=== PATIENT | female | born 1985 | race Caucasian/White ===

== ENCOUNTER 2020-05-31 10:03 | Emergency (ER) | payer OTHER, SELFPAY ==
--- NOTE | ~2020-05-31 | XR_ITS ---
EXAMINATION: CHEST AND LEFT SHOULDER. CLINICAL INFORMATION: Chest pain and left thumb pain. COMPARISON: None TECHNIQUE: Chest 2 views. Left shoulder 4 views. FINDINGS: Chest: The lungs are well-expanded and clear of acute process. The heart size and pulmonary vascularity is normal. No gross bony abnormality seen. Left shoulder: There is no visible acute fracture, dislocation or subluxation seen. Is minimal inferior AC joint spurring. The soft tissues are normal. XR/XR shoulder LT min 2V IMPRESSION: Minimal inferior left AC joint spurring. No visible acute fracture or dislocation. Unremarkable chest exam.
--- NOTE | ~2020-05-31 | XR_ITS ---
EXAMINATION: CHEST AND LEFT SHOULDER. CLINICAL INFORMATION: Chest pain and left thumb pain. COMPARISON: None TECHNIQUE: Chest 2 views. Left shoulder 4 views. FINDINGS: Chest: The lungs are well-expanded and clear of acute process. The heart size and pulmonary vascularity is normal. No gross bony abnormality seen. Left shoulder: There is no visible acute fracture, dislocation or subluxation seen. Is minimal inferior AC joint spurring. The soft tissues are normal. XR/XR chest 2V IMPRESSION: Minimal inferior left AC joint spurring. No visible acute fracture or dislocation. Unremarkable chest exam.
[2020-05-31 10:51] VITALS: BP 134/76; PULSE 110; RESP 18; TEMP 36.6; O2SAT 99; BMI 29.9
--- NOTE | 2020-05-31 12:52 | ECG_ITS ---
Test Reason : LEFT ARM PAIN Blood Pressure : / mmHG Vent. Rate : 078 BPM Atrial Rate : 078 BPM P-R Int : 128 ms QRS Dur : 102 ms QT Int : 382 ms P-R-T Axes : 042 054 036 degrees QTc Int : 435 ms Normal sinus rhythm with sinus arrhythmia Incomplete right bundle branch block Borderline ECG No previous ECGs available Referred By: Reyna Toledo Electronically Signed By:MAKENNA CLEMENTE MD
[2020-05-31 14:00] LABS: Basophils Percent Auto 0.3 % (0-2); Eosinophils Absolute Auto 0.1 X10*3/uL (0.0-0.4); Eosinophils Percent Auto 0.8 % (0-4); Hematocrit 41.9 % (37-47); Hemoglobin 13.8 g/dl (12.0-16.0); Imm Gran Abs Auto 0.04 X10*3/uL (0.00-0.03); Imm Gran Pct Auto 0.3 % (0.0-0.4); Lymphocytes Percent Auto 24.9 % (20-40); MANUAL DIFF FLAG NO; Mean Corpuscular HGB Conc 32.9 g/dl (31.0-35.0); Mean Corpuscular Hemoglobin 28.4 pg (27.0-33.0); Mean Corpuscular Volume 86.2 fL (80-98); Monocytes Absolute Auto 0.6 X10*3/uL (0.1-1.2); Neutrophils Absolute Auto 8.2 X10*3/uL (2.0-8.3); Neutrophils Percent Auto 68.7 % (45-73); Platelet Count 417 X10*3/uL (160-400); Red Blood Count 4.86 X10*6/uL (4.20-5.50); Red Cell Distribution Width 13.2 % (11.0-16.0); White Blood Count 11.9 X10*3/uL (4.8-10.8)
--- NOTE | 2020-05-31 14:01 | ED.EXTPRO ---
HPI - Extremity Problem General Chief complaint: Extremity Problem Stated complaint: lt arm pain Time Seen by Provider: 05/31/20 11:44 Source: patient Mode of arrival: ambulatory Limitations: no limitations History of Present Illness HPI Narrative: 35-year-old female with no significant past medical history presenting to the ED with complaints of atraumatic left shoulder pain intermittently for the past week with some slight neck stiffness worse since this morning. Denies any fevers, chills, dizziness, headaches, nausea/vomiting, chest pain, shortness of breath, dyspnea on exertion, orthopnea, palpitations, paresthesias, extremity edema in the upper or lower, any symptoms or any other symptoms complaints or concerns at this time. Reports that she is concerned about a heart attack due to her grandmother had a heart attack and in her 40s/50s. She also reports the huge cardiac history in her family on both her mother and her father side. Denies recent travel/immobilization/recent surgery or procedures/history of DVT/peripheral vascular disease/recent illness or history of gout. Denies any cocaine or any other drug usage. MD Complaint: extremity pain Onset (ago): week(s) (One week worse since this morning) Pain Consistency: constant Location: left and upper extremity Quality: aching and other (Intermittent over the past week although constant since this morning) Radiation: distal Relieving factors: nothing Exacerbating factors: nothing Associated symptoms: denies other symptoms Related Data Previous Rx's Medication Instructions Recorded cyclobenzaprine 10 mg PO Q8H #10 tab 05/31/20 ibuprofen 800 mg PO Q8H PRN #14 tab 05/31/20 lidocaine [Lidoderm] 1 patch TOPICAL DAILY #15 ea 05/31/20 Allergies Allergy/AdvReac Type Severity Reaction Status Date / Time amoxicillin [AMOXICILLIN] Allergy Intermediate HIVES Verified 05/31/20 10:50 Penicillins [PENICILLINS] Allergy Intermediate HIVES Verified 05/31/20 10:50 shellfish derived Allergy Intermediate ITCHING Verified 05/31/20 10:50 [SHELLFISH DERIVED] sulfamethoxazole Allergy Intermediate HIVES Verified 05/31/20 10:50 [From BACTRIM] trimethoprim [From BACTRIM] Allergy Intermediate HIVES Verified 05/31/20 10:50 penicillin V Allergy Unknown hives Verified 01/06/19 00:00 Sulfa (Sulfonamide Allergy Unknown hives Verified 01/06/19 00:00 Antibiotics) shellfish Allergy Unknown itching Uncoded 01/06/19 00:00 mouth Review of Systems Review of Systems: Constitutional : No Weight loss, No Fever, No Chills, No Night Sweats, No Fatigue, No Malaise ENT/Mouth : No Hearing loss, No Ear Pain, No Nasal Congestion, No Sinus Pain, No Hoarseness, No sore throat, No Rhinorrhea, No Swallowing Difficulty Eyes: No Eye Pain, No Swelling, No Redness, No Foreign Body, No Discharge, No Vision Changes Cardiovascular : No Chest Pain, No SOB, No Dyspnea on Exertion, No Orthopnea, No Edema, No Palpitations Respiratory : No Cough, No Sputum, No Wheezing, No Smoke Exposure, No Dyspnea Gastrointestinal : No Nausea, No Vomiting, No Diarrhea, No Constipation, No abdominal Pain, No Hematochezia, No Melena Genitourinary : no irregular bleeding, No Dysuria, No Urinary Frequency, No Hematuria, No Urinary Incontinence, No Urgency, No Flank Pain, No Urinary Flow Changes, No Hesitancy Musculoskeletal : + joint pain, No Myalgias, No Joint Swelling Skin : No Skin Lesions, No rash Neuro : No Weakness, No Numbness, No Paresthesias, No Loss of Consciousness, No Dizziness, No Headache Psych : No Anxiety/Panic, No Depression, No SI/HI/AH/VH, No Social Issues, Heme/Lymph: No Bruising, No Bleeding,No Lymphadenopathy Endocrine : No Polyuria, No Polydipsia, No Temperature Intolerance Yes all other systems are reviewed and are negative FOR[facility]LY [facility] Past Medical History Attestation statement: The following information was validated with the patient. Medical History No known health problems Social History Social History Advance Directives: No Advance Directives Information Provided: No Physical Exam Vital Signs: Vital Signs: Last Vital Signs Temp 97.9 F 05/31/20 10:51 Pulse 110 H 05/31/20 10:51 Resp 18 05/31/20 10:51 BP 134/76 05/31/20 10:51 Pulse Ox 99 05/31/20 10:51 Body Mass Index 29.9 vital signs have been reviewed as normal and appeared to be correct. Blood pressure normal. Heart rate tachycardic at 110. Respiration rate normal. Temperature normal. Oxygen saturation normal. Appearance: Alert. Oriented X3. No acute distress. Head: Normal external exam. Normocephalic. Atraumatic. Eyes: PERRLA. EOMI. Conjunctiva and sclera normal. Eyelids normal. ENT: Pharynx normal. Uvula midline. Moist mucous membranes. No trismus noted. No drooling noted. No muffled voice noted. Neck: Normal inspection. Neck supple. FROM. No adenopathy. Thyroid Normal. Trachea midline. No meningeal signs. No neck mass noted. Tender to palpation of bilateral paracervical musculature. No mid cervical tenderness. No step-offs or deformities noted. Patient neuro intact bilaterally and distally on all 4 extremities. Reflexes intact bilaterally and distally in all 4 extremities. No rashes/lesion/induration/fluctuance or signs of infection noted. No edema noted. CVS: Normal heart rate and rhythm. Heart sound normal. No murmurs noted. Pulses normal throughout. Respiratory: No respiratory distress. Painless inspiration. Breath sounds normal. No wheezes/rales/rhonchi noted. Chest nontender. No accessory muscle usage noted or decreased air movement noted. Back: Full range of motion noted. No obvious deformities, or edema. Full ROM in back and lower extremities. Skin: Skin warm and dry. Normal skin color. Normal skin turgor. No rashes/lesions/lacerations noted. Extremities: No reproducible tenderness to left shoulder/left upper arm or lower arm or hand. Patient has full range of motion of the left shoulder/left elbow and left wrist and hand. No signs of infection. Otherwise all other Extremities exhibit normal range of motion and nontender. Neuro: Oriented X 3. No motor deficit. No sensory deficit. Reflexes normal. Normal steady gait. Course Course Course Narrative: 35-year-old female with no significant past medical history presenting to the ED with complaints of atraumatic left shoulder pain intermittently for the past week with some slight neck stiffness worse since this morning. Patient requesting cardiac workup due to grandmother had a RI and sudden at 40-50 years old per patient. She also reports the huge cardiac history in her family on both her mother and her father side. - on exam patient is alert and oriented x3. Not in any acute distress. Mildly tachycardic at 110 otherwise all other vitals are within normal limits. Lungs clear to auscultation. CV RRR. No reproducible tenderness to left shoulder. Patient with full range of motion no signs of infection. Patient neuro intact no focal neuro deficits. - will obtain labs, chest x-ray, x-ray of left shoulder, EKG then re-evaluate. Reevaluation(s) Reevaluation #1: - Glucose level at 120 white blood cell count [id number] otherwise all other labs are within normal limits including troponin. - EKG sinus rhythm with incomplete right bundle-branch block otherwise no acute ischemic changes noted. There were no prior EKGs to compare to at this time. - chest x-ray within normal limits no acute processes noted. - x-ray of left shoulder revealed minimal inferior left AC joint spurring otherwise no other acute processes therefore most likely patient is having pain from this bone spur. - will DC home with symptomatic treatment along with instructions to return if any new or worsening symptoms to follow up with primary care provider. Patient understands agrees the plan. Time: 14:57 MDM - Extremity (Nontraumatic) Medical Records Attestation: I reviewed the patient's medical records. Lab Data Attestation: I reviewed the patient's lab results. Result diagrams: 05/31/20 13:47 05/31/20 13:47 Labs: Lab Results 05/31/20 05/31/20 05/31/20 Range/Units 13:47 13:47 13:47 WBC 11.9 H (4.8-10.8) X10*3/uL RBC 4.86 (4.20-5.50) X10*6/uL Hgb 13.8 (12.0-16.0) g/dl Hct 41.9 (37-47) % MCV 86.2 (80-98) fL MCH 28.4 (27.0-33.0) pg MCHC 32.9 (31.0-35.0) g/dl RDW 13.2 (11.0-16.0) % Plt Count 417 H (160-400) X10*3/uL MPV 9.0 L (9.4-12.3) fL Immature Gran % (Auto) 0.3 (0.0-0.4) % Neut % (Auto) 68.7 (45-73) % Lymph % (Auto) 24.9 (20-40) % [place] % (Auto) 5.0 (2-11) % Eos % (Auto) 0.8 (0-4) % Baso % (Auto) 0.3 (0-2) % Lymph # (Auto) 3.0 (1.2-4.9) X10*3/uL [place] # (Auto) 0.6 (0.1-1.2) X10*3/uL Eos # (Auto) 0.1 (0.0-0.4) X10*3/uL Baso # (Auto) 0.0 (0.0-0.2) X10*3/uL Abs Immat Gran (auto) 0.04 H (0.00-0.03) X10*3/uL Absolute Neuts (auto) 8.2 (2.0-8.3) X10*3/uL Absolute Nucleated RBC 0.000 (0.0-0.012) X10*3/uL Nucleated RBC % (auto) 0.0 (0.0-0.2) /100WBC PT 12.8 (10.8-13.0) SEC INR 1.1 (0.9-1.1) Sodium 140 (135-145) mmol/L Potassium 4.0 (3.3-5.1) mmol/L Chloride 104 (96-108) mmol/L Carbon Dioxide 27 (22-29) mmol/L Anion Gap 13 (12-20) BUN 9 (9-16) mg/dL Creatinine 0.80 (0.5-1.4) mg/dL Estim Creat Clear Calc 104.6 Estimated GFR > 60 Random Glucose 120 H (60-115) mg/dL Calcium 9.7 (8.4-10.2) mg/dL Magnesium 2.2 (1.6-2.6) mg/dL Total Bilirubin 0.5 (0.0-1.0) mg/dL Direct Bilirubin < 0.2 (0.0-0.5) mg/dL AST 12 (5-31) U/L ALT 11 (0-31) U/L Alkaline Phosphatase 65 (39-117) U/L Troponin I High Sens (<3.5-17.0) ng/L Total Protein 7.8 (6.5-8.0) g/dL Albumin 4.7 (3.5-5.0) g/dL 05/31/20 Range/Units 13:47 WBC (4.8-10.8) X10*3/uL RBC (4.20-5.50) X10*6/uL Hgb (12.0-16.0) g/dl Hct (37-47) % MCV (80-98) fL MCH (27.0-33.0) pg MCHC (31.0-35.0) g/dl RDW (11.0-16.0) % Plt Count (160-400) X10*3/uL MPV (9.4-12.3) fL Immature Gran % (Auto) (0.0-0.4) % Neut % (Auto) (45-73) % Lymph % (Auto) (20-40) % [place] % (Auto) (2-11) % Eos % (Auto) (0-4) % Baso % (Auto) (0-2) % Lymph # (Auto) (1.2-4.9) X10*3/uL [place] # (Auto) (0.1-1.2) X10*3/uL Eos # (Auto) (0.0-0.4) X10*3/uL Baso # (Auto) (0.0-0.2) X10*3/uL Abs Immat Gran (auto) (0.00-0.03) X10*3/uL Absolute Neuts (auto) (2.0-8.3) X10*3/uL Absolute Nucleated RBC (0.0-0.012) X10*3/uL Nucleated RBC % (auto) (0.0-0.2) /100WBC PT (10.8-13.0) SEC INR (0.9-1.1) Sodium (135-145) mmol/L Potassium (3.3-5.1) mmol/L Chloride (96-108) mmol/L Carbon Dioxide (22-29) mmol/L Anion Gap (12-20) BUN (9-16) mg/dL Creatinine (0.5-1.4) mg/dL Estim Creat Clear Calc Estimated GFR Random Glucose (60-115) mg/dL Calcium (8.4-10.2) mg/dL Magnesium (1.6-2.6) mg/dL Total Bilirubin (0.0-1.0) mg/dL Direct Bilirubin (0.0-0.5) mg/dL AST (5-31) U/L ALT (0-31) U/L Alkaline Phosphatase (39-117) U/L Troponin I High Sens < 3.5 (<3.5-17.0) ng/L Total Protein (6.5-8.0) g/dL Albumin (3.5-5.0) g/dL Imaging Data Chest x-ray: Attestation: I personally reviewed and interpreted this imaging study as follows: Radiologist's impression: FINDINGS: Chest: The lungs are well-expanded and clear of acute process. The heart size and pulmonary vascularity is normal. No gross bony abnormality seen. Left shoulder: There is no visible acute fracture, dislocation or subluxation seen. Is minimal inferior AC joint spurring. The soft tissues are normal. XR/XR chest 2V IMPRESSION: Minimal inferior left AC joint spurring. No visible acute fracture or dislocation. Unremarkable chest exam. Left shoulder x-ray: Attestation: I personally reviewed and interpreted this imaging study as follows: Radiologist's impression: FINDINGS: Chest: The lungs are well-expanded and clear of acute process. The heart size and pulmonary vascularity is normal. No gross bony abnormality seen. Left shoulder: There is no visible acute fracture, dislocation or subluxation seen. Is minimal inferior AC joint spurring. The soft tissues are normal. XR/XR shoulder LT min 2V IMPRESSION: Minimal inferior left AC joint spurring. No visible acute fracture or dislocation. Unremarkable chest exam. ECG Data Attestation EKG: I personally reviewed and interpreted this ECG as follows: ECG interpretation date: 05/31/20 ECG interpretation time: 13:19 Interpretation: Normal sinus rhythm with sinus arrhythmia with ventricular rate of 78 with incomplete right bundle branch block no acute ischemic changes noted. No prior EKGs to compare to At this time in the system. Scores Heart Score History: -0- slightly suspicious ECG: -0- normal Age: -0- < or = 45 Risk factory: -0- no risk factors known Troponin: -0- < or = normal limit Score: 0 Risk: 1.7% Discharge Plan Discharge Clinical Impression: Bone spur of acromioclavicular joint Qualifiers: Laterality: left Qualified Code(s): M75.82 - Other shoulder lesions, left shoulder Patient Disposition: Home, Self-Care Instructions: Shoulder Pain (ED) Prescriptions: New cyclobenzaprine 10 mg tablet 10 mg PO Q8H Qty: 10 RF: 0 ibuprofen 800 mg tablet 800 mg PO Q8H PRN (Reason: pain) Qty: 14 RF: 0 lidocaine [Lidoderm] 5 % adhesive patch,medicated 1 patch topical DAILY Qty: 15 RF: 0 Referrals: Mari Blcak DRY MAN [Primary Care Provider] - 2 days Print Language: Welsh
[2020-05-31 14:06] LABS: INTERNATIONAL NORM RATIO 1.1 (0.9-1.1); Prothrombin Time 12.8 SEC (10.8-13.0)
[2020-05-31 14:26] LABS: Alanine Aminotransferase 11 U/L (0-31); Albumin Level 4.7 g/dL (3.5-5.0); Alkaline Phosphatase 65 U/L (39-117); Anion Gap 13 (12-20); Aspartate Amino Transferase 12 U/L (5-31); Bilirubin Direct < 0.2 mg/dL (0.0-0.5); Bilirubin Total 0.5 mg/dL (0.0-1.0); Blood Urea Nitrogen 9 mg/dL (9-16); Calcium 9.7 mg/dL (8.4-10.2); Carbon Dioxide 27 mmol/L (22-29); Chloride 104 mmol/L (96-108); Creatinine Clr Calc Pharmacy 104.6; Estimated Glomerular Filt Rate > 60; Glucose Random 120 mg/dL (60-115); Magnesium 2.2 mg/dL (1.6-2.6); Sodium 140 mmol/L (135-145); Total Protein 7.8 g/dL (6.5-8.0)
[2020-05-31 14:28] LABS: Troponin-I High Sensitivity < 3.5 ng/L (<3.5-17.0)
== END 2020-05-31 15:10 | disposition home or self-care (01) ==
PROVIDERS: Physician Assistant Medical; Emergency Provider Emergency Medicine Emergency Medical Services; PCP Nurse Practitioner Family
DX: M75.82 Other shoulder lesions, left shoulder (principal); M79.602 Pain in left arm
CPT/HCPCS: 36415; 71046; 73030; 80048; 80076; 83735; 84484; 85025; 85610; 93005; 99283

== ENCOUNTER → 2020-07-12 10:11 | Outpatient (BNVA) | payer OTHER, SELFPAY | PROVIDERS: PCP Nurse Practitioner Family; Visit Provider Advanced Practice Midwife | DX: Z34.90 Encounter for supervision of normal pregnancy, unspecified, unspecified trimester (principal); R10.2 Pelvic and perineal pain | CPT/HCPCS: 81025 ==

== ENCOUNTER 2020-07-20 09:01 | Outpatient (REF) | payer OTHER, SELFPAY ==
--- NOTE | ~2020-07-20 | US_ITS ---
EXAMINATION: OBSTETRICAL ULTRASOUND, FIRST TRIMESTER HISTORY: 35-year-old at 7.2 weeks of gestation Viability AMA at delivery LMP: 05/30/2020 COMPARISON: None in this TECHNIQUE: Real time transabdominal imaging with color and M-mode Doppler. FINDINGS: A single, live IUP CRL of 9.7 mm c/w 7.1wks is noted. Heart Rate: 142 beats per minute. Both maternal ovaries are seen and appear normal. GESTATIONAL AGE: 1. GA from LMP: 7.2 wks 2. GA from AUA: 7.1 wks ESTIMATED DATE OF DELIVERY: 1. RAEGAN from LMP: 03/06/2021 2. RAEGAN from AUA: 03/07/2021 US/US OB pelvic and transvaginal IMPRESSION: 1. A single live IUP 2. Size equals dates 3. Ovaries Thank you very much for this referral. This note was generated with a voice recognition program. Please excuse any errors which may have been overlooked during my review of this note. Sometimes these errors may affect the content or meaning of a given sentence.
== END 2020-07-20 09:02 | disposition home or self-care (01) ==
LOC: HO.US 09:01
PROVIDERS: PCP Nurse Practitioner Family; Visit Provider Advanced Practice Midwife
DX: O26.891 Other specified pregnancy related conditions, first trimester (principal); R10.2 Pelvic and perineal pain
CPT/HCPCS: 76801; 76817

== ENCOUNTER → 2020-08-07 13:54 | Outpatient (BNVA) | payer OTHER, SELFPAY | PROVIDERS: PCP Nurse Practitioner Family; Visit Provider Advanced Practice Midwife | DX: Z13.89 Encounter for screening for other disorder (principal) | CPT/HCPCS: 99212 ==

== ENCOUNTER 2020-08-16 14:13 | Outpatient (REF) | payer OTHER, SELFPAY ==
[2020-08-17 05:06] LABS: CT PCR NOT DETECTED (Not Detect.); NG PCR NOT DETECTED (Not Detect.)
== END 2020-08-16 14:14 | disposition home or self-care (01) ==
LOC: HO.LAB 14:13
PROVIDERS: PCP Nurse Practitioner Family; Visit Provider Advanced Practice Midwife
DX: Z34.91 Encounter for supervision of normal pregnancy, unspecified, first trimester (principal); Z3A.11 11 weeks gestation of pregnancy
CPT/HCPCS: 81003; 87491; 87591; 99212

== ENCOUNTER 2020-08-24 10:20 | Outpatient (REF) | payer OTHER, SELFPAY ==
--- NOTE | ~2020-08-24 | US_ITS ---
EXAMINATION: OBSTETRICAL ULTRASOUND, FIRST TRIMESTER HISTORY: 35-year-old at 12.2 weeks of gestation NT screening AMA at delivery COMPARISON: 07/20/2020 TECHNIQUE: Real time transabdominal imaging with color and M-mode Doppler. FINDINGS: A single, live IUP CRL of 56.5 mm c/w 12.2wks is noted. Heart Rate: 161 beats per minute. Normal yolk sac seen. NT was 0.8.mm. NB Present The embryo appears sonographically wnl for this GA. Both maternal ovaries are seen and appear normal. GESTATIONAL AGE: 1. Established GA: 12.2 wks 2. GA from AUA: 12.2 wks ESTIMATED DATE OF DELIVERY: 1. Established RAEGAN: 03/06/2021 2. RAEGAN from AUA: 03/06/2021 US/US OB 1T nuc measure IMPRESSION: 1. A single live IUP 2. Size equals dates 3. NT of 0.8 mm MFM Consultation: I reviewed the ultrasound findings along with significance of NT measurement. The NT of less than 3mm is generally reassuring. However, the sensitivity for T21 detection is only 60%. I reviewed the availability of serum aneuploidy screening which includes cell-free DNA and placental protein based tests. I discussed the sensitivity, false-positive rate, and other limitations associated with each test. I also reviewed the availability of invasive diagnostic tests that are associated small but definite risk of miscarriage. We also reviewed the differences between screening tests and diagnostic tests. After our discussion, she opted for the First trimester screening that is based on cell-free DNA or non-invasive testing (NIPT). The result will be faxed to your office in approximately 7 days. A follow up at 18 weeks for survey has been scheduled. Thank you very much for this referral. Total time 30 minutes. The time spent was devoted to counseling the patient about the disease and diagnosis, coordinating care including reviewing her records, pertinent lab data and studies, as well as discussing diagnostic evaluation and workup, plan therapeutic interventions and future disposition of care. This includes any additional research needed to obtain further information in formulating the plan of care of this patient. This note was generated with a voice recognition program. Please excuse any errors which may have been overlooked during my review of this note. Sometimes these errors may affect the content or meaning of a given sentence.
== END 2020-08-24 10:21 | disposition home or self-care (01) ==
LOC: HO.US 10:20
PROVIDERS: PCP Nurse Practitioner Family; Visit Provider Advanced Practice Midwife
DX: O09.511 Supervision of elderly primigravida, first trimester (principal); Z3A.12 12 weeks gestation of pregnancy; Z36.82 Encounter for antenatal screening for nuchal translucency
CPT/HCPCS: 76813

== ENCOUNTER → 2020-09-13 10:29 | Outpatient (BNVA) | payer OTHER, SELFPAY | PROVIDERS: PCP Nurse Practitioner Family; Visit Provider Advanced Practice Midwife | DX: Z34.91 Encounter for supervision of normal pregnancy, unspecified, first trimester (principal); Z3A.15 15 weeks gestation of pregnancy | CPT/HCPCS: 81003; 99212 ==

== ENCOUNTER 2020-09-26 07:54 | Outpatient (REF) | payer OTHER, SELFPAY ==
[2020-09-26 10:11] LABS: Hematocrit 38.8 % (37-47); Hemoglobin 12.5 g/dl (12.0-16.0); Mean Corpuscular HGB Conc 32.2 g/dl (31.0-35.0); Mean Corpuscular Hemoglobin 27.8 pg (27.0-33.0); Mean Corpuscular Volume 86.4 fL (80-98); Mean Platelet Volume 9.6 fL (9.4-12.3); Platelet Count 358 X10*3/uL (160-400); Red Blood Count 4.49 X10*6/uL (4.20-5.50); Red Cell Distribution Width 13.3 % (11.0-16.0); White Blood Count 11.2 X10*3/uL (4.8-10.8)
[2020-09-26 10:44] LABS: Glucose 1 Hour PP 50gm Dose 153 mg/dL (60-140)
[2020-09-26 10:46] LABS: Amphetamine Screen Urine Not Detected (Not Detect); Barbiturates, Urine Not Detected (Not Detect); Benzodiazepines Screen Urine Not Detected (Not Detect); Cannabinoid Screen Urine Not Detected (Not Detect); Cocaine Screen Urine Not Detected (Not Detect); Opiate Screen Urine Not Detected (Not Detect); Phencyclidine Screen Urine Not Detected (Not Detect)
[2020-09-26 11:03] LABS: HIV AB/AG Nonreactive (Nonreactive); HIV Num 1 0.05 S/CO (0.00-0.99); ~HepC Num1 0.33 S/CO (0.00-0.79); ~Hepatitis C Antibody Nonreactive (Nonreactive)
[2020-09-26 11:06] LABS: Syphilis Screen Nonreactive (Nonreactive)
[2020-09-26 11:07] LABS: Hepatitis B Surface Antigen Negative (Negative)
[2020-09-27 17:47] LABS: Rubella IgG Antibody 3.53 Index
[2020-09-28 13:42] LABS: Hematocrit 37.5 % (35.0-45.0); Hemoglobin 12.8 g/dL (11.7-15.5); MCH 28.9 pg (27.0-33.0); MCV 84.7 fL (80.0-100.0); RBC 4.43 Million/uL (3.80-5.10)
== END 2020-09-26 07:55 | disposition home or self-care (01) ==
LOC: HO.LAB 07:54
PROVIDERS: PCP Nurse Practitioner Family; Visit Provider Advanced Practice Midwife
DX: Z01.84 Encounter for antibody response examination (principal); Z11.3 Encounter for screening for infections with a predominantly sexual mode of transmission; Z11.4 Encounter for screening for human immunodeficiency virus [HIV]; Z11.59 Encounter for screening for other viral diseases
CPT/HCPCS: 80307; 83020; 85014; 85018; 85027; 85041; 86762; 86780; 86787; 86803; 86850; 86900; 86901; 87086; 87340; 87389

== ENCOUNTER 2020-10-05 11:05 | Outpatient (REF) | payer OTHER, SELFPAY ==
--- NOTE | ~2020-10-05 | US_ITS ---
EXAMINATION: US OBSTETRICAL CLINICAL INFORMATION: 35-year-old the at 18.2 weeks of gestation Screening for anomaly COMPARISON: 08/24/2020 TECHNIQUE: Real-time transabdominal ultrasound was performed using C1-5 megahertz transducer. FINDINGS: A single, active, fetus is seen in vertex presentation. The placenta is posterior without previa, and the amniotic fluid volume is wnl. MEASUREMENTS: 1. Biparietal Diameter: 3.9 cm; 17.6 wks 2. Occipital Frontal Diameter: 5.1 cm 3. Head Circumference: 14.8 cm; 18.0 wks 4. Abdominal Circumference: 12.4 cm; 18.1 wks 5. Femur Length: 2.7 cm; 18.3 wks 6. Humerus Length: 2.7 cm; 18.4 wks 7. Tibia Length: 2.4 cm; 18.4 wks 8. Ulna Length: 2.6 cm; 19.4 wks 9. Lateral ventricle: 0.64 cm 10. Cerebellum: 1.8 cm; 18.4 wks 11. Cisterna Magna: 0.4 cm 12. Nuchal Fold: 2.8 mm 13. Heart Rate: 155 beats per minute Rt ovary: normal Lt ovary: normal Cervical length 4.0 cm on T/A. GESTATIONAL AGE: 1. Established GA: 18.2 wks 2. GA from [facility]: 18.1 wks ESTIMATED DATE OF DELIVERY: 1. Established RAEGAN: 03/06/2021 2. RAEGAN from [facility]: 03/07/2021 ANATOMY: The visualized anatomy includes but not limited to: 1. Cranium: Normal 2. Intracranial anatomy: cavum septum pellucidi, lateral ventricles, choroid plexus, cerebellum, posterior fossa, third and fourth ventricles. 3. face: orbits, lip/palate, profile, nasal bone 4. Heart: four-chamber view of the heart, ventricular septum, foramen ovale, pulmonary vein, left and right outflow tracts, three-vessel view, 3 vessel trachea view, aortic and ductal arches, situs.. 5. Diaphragm: Normal 6. Abdominal wall: Normal 7. Cord Insertion: Normal 8. Spine: Cervical, thoracic, lumbar, sacral. 9. Stomach: Normal size and shape 10. Right Kidney: Normal 11. Left Kidney: Normal 12. 3 vessel cord: Normal 13. Upper extremity: Open hands, fifth digit. 14. Lower extremity: Tibia, fibula, bilateral feet. 15. Bladder: Normal 16. Genitalia: Female, patient aware US/US OB /maternal detail IMPRESSION: 1. Single, living, intrauterine with appropriate biometry. 2. Normal survey DISCUSSION: I reviewed today's ultrasound findings. We discussed the limitations of ultrasound in diagnosing aneuploidy and other congenital abnormalities. I reviewed the differences between screening test and diagnostic test. Amniocentesis was discussed and declined. She was informed that the baseline incidence of congenital abnormalities is approximately 3-5%. Not all these conditions are diagnosable in utero. RECOMMENDATIONS: 1. Follow-up when necessary Thank you for allowing me to participate in her care. Total time 30 minutes. The time spent was devoted to counseling the patient about the disease and diagnosis, coordinating care including reviewing her records, pertinent lab data and studies, as well as discussing diagnostic evaluation and workup, plan therapeutic interventions and future disposition of care. This includes any additional research needed to obtain further information in formulating the plan of care of this patient. This note was generated with a voice recognition program. Please excuse any errors which may have been overlooked during my review of this note. Sometimes these errors may affect the content or meaning of a given sentence.
== END 2020-10-05 11:06 | disposition home or self-care (01) ==
LOC: HO.US 11:05
PROVIDERS: Visit Provider Advanced Practice Midwife
DX: Z36.3 Encounter for antenatal screening for malformations (principal); O99.810 Abnormal glucose complicating pregnancy; Z3A.18 18 weeks gestation of pregnancy; Z88.2 Allergy status to sulfonamides; Z88.8 Allergy status to other drugs, medicaments and biological substances; Z88.6 Allergy status to analgesic agent; Z88.1 Allergy status to other antibiotic agents; Z88.0 Allergy status to penicillin; Z91.013 Allergy to seafood
CPT/HCPCS: 76811; 99212

== ENCOUNTER 2020-12-13 06:05 | Outpatient (REF) | payer OTHER, SELFPAY ==
[2020-12-13 07:44] LABS: MANUAL DIFF FLAG NO
[2020-12-13 08:04] LABS: Glucose Fasting 102 mg/dL (60-99)
[2020-12-13 08:25] LABS: Basophils Percent Auto 0.3 % (0-2); Eosinophils Absolute Auto 0.2 X10*3/uL (0.0-0.4); Eosinophils Percent Auto 1.8 % (0-4); Hematocrit 35.2 % (37-47); Hemoglobin 11.6 g/dl (12.0-16.0); Imm Gran Abs Auto 0.08 X10*3/uL (0.00-0.03); Imm Gran Pct Auto 0.6 % (0.0-0.4); Lymphocytes Absolute Auto 1.8 X10*3/uL (1.2-4.9); Lymphocytes Percent Auto 14.2 % (20-40); Mean Corpuscular Hemoglobin 28.4 pg (27.0-33.0); Mean Corpuscular Volume 86.3 fL (80-98); Mean Platelet Volume 9.4 fL (9.4-12.3); Monocytes Absolute Auto 0.6 X10*3/uL (0.1-1.2); Monocytes Percent Auto 4.9 % (2-11); Neutrophils Absolute Auto 9.7 X10*3/uL (2.0-8.3); Neutrophils Percent Auto 78.2 % (45-73); Platelet Count 378 X10*3/uL (160-400); Red Blood Count 4.08 X10*6/uL (4.20-5.50); Red Cell Distribution Width 13.9 % (11.0-16.0); White Blood Count 12.4 X10*3/uL (4.8-10.8)
[2020-12-13 08:48] LABS: Glucose 1 Hour 182 mg/dL
[2020-12-13 09:35] LABS: Glucose 2 Hour 153 mg/dL
[2020-12-13 10:17] LABS: Glucose 3 Hour 112 mg/dL
== END 2020-12-13 06:06 | disposition home or self-care (01) ==
LOC: HO.LAB 06:05
PROVIDERS: PCP Nurse Practitioner Family; Visit Provider Advanced Practice Midwife
DX: O99.810 Abnormal glucose complicating pregnancy (principal); Z3A.00 Weeks of gestation of pregnancy not specified
CPT/HCPCS: 36415; 82951; 85025